=== PATIENT | male | born 1980 | race Caucasian/White ===

== ENCOUNTER 2016-07-26 18:47 | Emergency (ER) | payer OTHER ==
[~2016-07-26] VITALS: Ht 177.8 cm; Wt 65.0 kg
[2016-07-26 18:53] VITALS: Ht 177.8 cm; Wt 65.0 kg
[2016-07-26] MEDS ORDERED: ONDANSETRON 4 MG INJ IV STA (19:34)
[2016-07-26] MEDS ORDERED: SOD CHLORIDE 0.9% 1,000 ML IV STA (19:34)
[2016-07-26] MEDS ORDERED: FAMOTIDINE 20 MG INJ IV STA (19:34)
[2016-07-26] MEDS ORDERED: METOCLOPRAMIDE 10 MG INJ IV ONE (20:30)
[2016-07-26 20:59] LABS: ALBUMIN 3.8 g/dl (3.3-4.9)
[2016-07-26 21:00] LABS: POTASSIUM 3.6 mmol/L (3.5-5.1)
[2016-07-26 21:02] LABS: ALBUMIN/GLOBULIN RATIO 1.58; BILIRUBIN,INDIRECT 0.1 mg/dl (0-1.1); BILIRUBIN,TOTAL 0.1 mg/dl (0.2-1.3); CREATININE 0.84 mg/dl (0.61-1.24); TOTAL PROTEIN 6.2 g/dl (6.1-8.1)
[2016-07-26 21:03] LABS: CALCIUM 8.4 mg/dl (8.4-10.2)
[2016-07-26 21:06] LABS: BASOPHILS % 0.1 % (0.0-2.0); EOSINOPHILS # 0.1 10^3/ul (0.0-0.5); EOSINOPHILS % 0.4 % (0.0-7.0); HEMATOCRIT 39.7 % (42.0-52.0); HEMOGLOBIN 13.4 g/dl (14.0-18.0); LYMPHOCYTES # 1.5 10^3/ul (0.8-2.9); LYMPHOCYTES % 9.8 % (15.0-51.0); MEAN CORPUSCULAR HEMOGLOBIN 31.5 pg (29.0-33.0); MEAN CORPUSCULAR HGB CONC 33.7 g/dl (32.0-37.0); MEAN CORPUSCULAR VOLUME 93.6 fl (82.0-101.0); MEAN PLATELET VOLUME 9.8 fl (7.4-10.4); MONOCYTE # 0.7 10^3/ul (0.3-0.9); MONOCYTES % 4.1 % (0.0-11.0); NEUTROPHIL # 13.5 10^3/ul (1.6-7.5); NEUTROPHILS % 85.6 % (39.0-77.0); PLATELET COUNT 216 10^3/UL (140-440); RED BLOOD COUNT 4.24 10^6/ul (4.70-6.10); RED CELL DISTRIBUTION WIDTH 12.8 % (11.5-14.5); UNCORRECTED WBC 15.7 10^3/ul (4.8-10.8); WHITE BLOOD COUNT 15.7 10^3/ul (4.8-10.8)
[2016-07-26 21:08] LABS: CONDITION 1
[2016-07-26] MEDS ORDERED: DEXTROSE 5%-0.45% NACL 1,000 ML IV SCH (21:30)
--- NOTE | 2016-07-26 21:31 | ERD ---
ER Documentation Chief Complaint Date/Time DATE: 07/26/16 TIME: 21:29 Chief Complaint BIB FAMILY ETOH "MIXED VODKA, TEQUILLA, WHISKEY, NO DRUGS" HPI This is a 35-year-old male who presents to the emergency room after being brought in by family for evaluation of alcohol intoxication. According to family members this patient was mixing vodka, tequila, and cognac at a constitution party. The patient does not drink frequently and according to family members has been no vomiting and shaking. The patient was brought in for evaluation at this time. Patient is unable to give a history secondary to his clinical condition. ROS All systems reviewed and are negative except as per history of present illness. Allergies Allergies: Coded Allergies: No Known Allergy (Unverified , 07/26/16) PMhx/Soc Medical and Surgical Hx: pt denies Medical Hx, pt denies Surgical Hx History of Surgery: No Anesthesia Reaction: No Hx Neurological Disorder: No Hx Respiratory Disorders: No Hx Cardiac Disorders: No Hx Psychiatric Problems: No Hx Miscellaneous Medical Probl: No Hx Alcohol Use: Yes Hx Substance Use: No Hx Tobacco Use: No Smoking Status: Current every day smoker Physical Exam Vitals Vital Signs Date Time Temp Pulse Resp B/P Pulse Ox O2 Delivery O2 Flow Rate FiO2 07/26/16 18:53 98.5 82 18 117/62 95 Physical Exam Const: Patient lying in bed, retching Head: Atraumatic Eyes: Normal Conjunctiva ENT: Dry mucous membranes, normal External Ears, Nose and Mouth. Neck: Full range of motion..~ No meningismus. Resp: Clear to auscultation bilaterally Cardio: Regular rate and rhythm, no murmurs Abd: Soft, non tender, non distended. Normal bowel sounds Skin: No petechiae or rashes Back: No midline or flank tenderness Ext: No cyanosis, or edema Neur: Awake and alert Psych: Normal Mood and Affect Result Diagram: 07/26/16201407/26/162014 Results 24 hrs Laboratory Tests Test 07/26/16 20:15 Alanine Aminotransferase (ALT/SGPT) 38IU/L Albumin 3.8g/dl Albumin/Globulin Ratio 1.58 Alkaline Phosphatase 23IU/L Anion Gap 21 Aspartate Amino Transf (AST/SGOT) 23IU/L Basophils # 0.010^3/ul Basophils % 0.1% Blood Urea Nitrogen 10mg/dl Calcium Level 8.4mg/dl Carbon Dioxide Level 24mmol/L Chloride Level 111mmol/L Creatinine 0.84mg/dl Direct Bilirubin 0.00mg/dl Eosinophils # 0.110^3/ul Eosinophils % 0.4% Ethyl Alcohol Level 158.0mg/dl Globulin 2.40g/dl Glucose Level 82mg/dl Hematocrit 39.7% Hemoglobin 13.4g/dl Indirect Bilirubin 0.1mg/dl Lipase 85U/L Lymphocytes # 1.510^3/ul Lymphocytes % 9.8% Mean Corpuscular Hemoglobin 31.5pg Mean Corpuscular Hemoglobin Concent 33.7g/dl Mean Corpuscular Volume 93.6fl Mean Platelet Volume 9.8fl Monocytes # 0.710^3/ul Monocytes % 4.1% Neutrophils # 13.510^3/ul Neutrophils % 85.6% Nucleated Red Blood Cells # 0.010^3/ul Nucleated Red Blood Cells % 0.0/100WBC Platelet Count 84365^3/UL Potassium Level 3.6mmol/L Red Blood Count 4.2410^6/ul Red Cell Distribution Width 12.8% Sodium Level 152mmol/L Total Bilirubin 0.1mg/dl Total Protein 6.2g/dl White Blood Count 15.710^3/ul Current Medications Medications (Trade) Dose Ordered Sig/Chrissie Route PRN Reason Start Time Stop Time Status Last Admin Dose Admin Sodium Chloride (NS) 1,000 ml @ 1,000 mls/hr Q1H STAT IV 07/26/16 19:34 07/26/16 20:33 DC 07/26/16 19:48 Ondansetron HCl (Zofran Inj) 4 mg ONCE STAT IV 07/26/16 19:34 07/26/16 19:35 DC 07/26/16 19:50 Famotidine (Pepcid Iv) 20 mg ONCE STAT IV 07/26/16 19:34 07/26/16 19:35 DC 07/26/16 19:50 Metoclopramide HCl 10 mg 10 mg ONCE ONCE IV 07/26/16 20:30 07/26/16 20:31 DC 07/26/16 20:38 Dextrose/Sodium Chloride (D5-1/2ns) 1,000 ml @ 500 mls/hr Q2H IV 2/12/17 21:30 Procedures/MDM This 35-year-old male presents to the emergency room for evaluation of altered mental status after drinking alcohol. When I evaluated this patient he did appear to be intoxicated on my examination, he was retching. The patient was given Zofran in the emergency room with some moderate relief of his symptoms. He did continue to have mild retching however. The patient was given Reglan. He was given 1 L of IV fluids, 1 L of D5 half-normal saline. The patient will be discharged home at this time with a prescription for Zantac, and Zofran. He will be taken home by his family members. Departure Diagnosis: Primary Impression: Alcoholic intoxication Additional Impression: Mild dehydration Condition: Stable RADHA PATEL DO Jul 26, 2016 21:31
[2016-07-26] MEDS ORDERED: RANI150T9 PO (21:32)
[2016-07-26] MEDS ORDERED: ONDA4TAB8 PO (21:32)
[2016-07-26 22:52] VITALS: BP 94/52; PULSE 53; RESP 16
== END 2016-07-26 22:53 | disposition home or self-care (01) ==
LOC: E/R 18:47
DX: F10.129 Alcohol abuse with intoxication, unspecified (principal); R40.2252 Coma scale, best verbal response, oriented, at arrival to emergency department; E86.0 Dehydration; F17.210 Nicotine dependence, cigarettes, uncomplicated; R40.2142 Coma scale, eyes open, spontaneous, at arrival to emergency department; R40.2362 Coma scale, best motor response, obeys commands, at arrival to emergency department
CPT/HCPCS: 36415; 80053; 80306; 83690; 85025; 96361; 96374; 96375; 99284; J2405; J2765; J7030; J7042